=== PATIENT | female | born 1990 | race Caucasian/White ===

== ENCOUNTER 2016-12-04 23:25 | Emergency (ER) | payer BC, MEDICAID ==
[2016-12-05 00:01] VITALS: BP 126/89
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
== END 2016-12-05 01:35 | disposition home or self-care (01) ==
LOC: DL.ED 23:25
DX: S93.402A Sprain of unspecified ligament of left ankle, initial encounter (principal); F10.920 Alcohol use, unspecified with intoxication, uncomplicated; Z88.1 Allergy status to other antibiotic agents; W10.9XXA Fall (on) (from) unspecified stairs and steps, initial encounter
CPT/HCPCS: 36415; 73610; 99284; G0480

== ENCOUNTER 2017-01-10 15:17 | Emergency (ER) | payer MEDICAID | END 2017-01-10 15:40 | disposition left against medical advice (07) | LOC: DL.ED 15:17 | DX: Z53.21 Procedure and treatment not carried out due to patient leaving prior to being seen by health care provider (principal) ==

== ENCOUNTER 2019-12-23 11:15 | Emergency (ER) | payer OTHER, MEDICAID ==
[2019-12-23 11:30] VITALS: BP 112/65; PULSE 74
--- NOTE | 2019-12-23 11:49 | CR ---
PROCEDURE INFORMATION: Exam: XR Left Ankle Exam date and time: 12/23/2019 11:30 AM Age: 29 years old Clinical indication: Pain; Swelling or effusion of joint; Ankle; Left; Additional info: Ankle pain TECHNIQUE: Imaging protocol: XR Left ankle. Views: 1 or 2 views. COMPARISON: CR Ankle Min 3V Lt 12/05/2016 12:13 AM FINDINGS: Bones/joints: The ankle mortise is intact. No fractures are identified. Subtalar joints are in anatomic alignment. Bone mineral density is normal. Soft tissues: [id number] grade lateral soft tissue swelling is present. IMPRESSION: 1. Lateral soft tissue swelling. No acute osseous injury present.
--- NOTE | 2019-12-23 12:02 | EDM.PDOC ---
Scribed by Joyce Suarez 12/23/19 1202 for Genny Steele MD ED HPI GENERAL MEDICAL PROBLEM - General Chief Complaint: Lower Extremity Injury/Pain Stated Complaint: LEFT ANKLE INJURY [id number] Time Seen by Provider: 12/23/19 11:55 Source of Information: Reports: Patient, RN, RN Notes Reviewed History Limitations: Reports: No Limitations - History of Present Illness INITIAL COMMENTS - FREE TEXT/NARRATIVE: Patient presents to ED stating that she fell last night and has had pain and swelling to left ankle since. 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 Onset Date: 12/22/19 Duration: Constant Location: Reports: Lower Extremity, Left Quality: Reports: Ache Severity: Mild Improves with: Reports: None Worsens with: Reports: None Associated Symptoms: Reports: No Other Symptoms Left Ankle Pain Score (Numeric/FACES): 7 - Related Data Allergies Allergy/AdvReac Type Severity Reaction Status Date / Time amoxicillin Allergy Severe Swelling Verified 12/05/16 00:01 clavulanic acid Allergy Hives Verified 06/21/19 09:06 [From Augmentin] Home Meds: Home Meds . [No Known Home Meds] 04/22/16 [History] Past Medical History - Past Health History Medical/Surgical History: Denies Medical/Surgical History HEENT History: Reports: Other (See Below) Other HEENT History: dental pain Psychiatric History: Reports: Depression Endocrine/Metabolic History: Reports: Hypothyroidism Social & Family History - Family History Family Medical History: Noncontributory - Tobacco Use Smoking Status *Q: Light Tobacco Smoker Years of Tobacco use: 10 Packs/Tins Daily: 0.5 - Caffeine Use Caffeine Use: Reports: None - Recreational Drug Use Recreational Drug Use: No - Living Situation & Occupation Living situation: Reports: with Family Occupation: Employed Review of Systems - Review of Systems Review Of Systems: Comprehensive ROS is negative, except as noted in HPI. ED EXAM, GENERAL - Physical Exam Exam: See Below Exam Limited By: No Limitations General Appearance: Alert, WD/WN, No Apparent Distress Respiratory/Chest: No Respiratory Distress, Lungs Clear, Normal Breath Sounds, No Accessory Muscle Use Cardiovascular: Normal Peripheral Pulses, Regular Rate, Rhythm, No Murmur GI/Abdominal: Soft, Non-Tender Extremities: Other (left ankle swelling tender to palpation over ATFL. no tenderness to posterior malleoli. neurovascularly intact in the foot ) Neurological: Alert, Oriented, Normal Gait Psychiatric: Normal Affect, Normal Mood Skin Exam: Warm, Dry, Intact, No Rash Course - Vital Signs Last Recorded V/S: Last Vital Signs Temp 97.8 F 12/23/19 11:29 Pulse 74 12/23/19 11:29 Resp 16 12/23/19 11:29 BP 112/65 12/23/19 11:29 Pulse Ox 95 12/23/19 11:29 Departure - Departure Time of Disposition: 12:00 Disposition: Home, Self-Care 01 Condition: Good Clinical Impression: Left ankle sprain Qualifiers: Encounter type: initial encounter Involved ligament of ankle: anterior talofibular ligament Qualified Code(s): S93.492A - Sprain of other ligament of left ankle, initial encounter - Discharge Information *PRESCRIPTION DRUG MONITORING PROGRAM REVIEWED*: Not Applicable *COPY OF PRESCRIPTION DRUG MONITORING REPORT IN PATIENT [place]: Not Applicable Instructions: Ankle Sprain, [id number] Forms: ED Department Discharge Sepsis Event Note (ED) - Evaluation Sepsis Screening Result: No Definite Risk - Focused Exam Vital Signs: Vital Signs Temp Pulse Resp BP Pulse Ox 12/23/19 11:29 97.8 F 74 16 112/65 95 - Assessment/Plan Assessment:: 29 yo female with left ankle sprain Plan: vick wrap discussed symptomatic treatment including RICE therapy reviewed reasons to call/return the ER fu with PCP in 3-5 days I have read and agree with the documentation that has been completed regarding this visit. By signing this record, I attest that the documentation was completed in my physical presence and is an accurate record of the encounter.
== END 2019-12-23 12:07 | disposition home or self-care (01) ==
LOC: DL.ED 11:15
DX: S93.492A Sprain of other ligament of left ankle, initial encounter (principal); F17.210 Nicotine dependence, cigarettes, uncomplicated; Z88.0 Allergy status to penicillin; Z88.1 Allergy status to other antibiotic agents; W18.39XA Other fall on same level, initial encounter
CPT/HCPCS: 73600-LT; 99283

== ENCOUNTER 2020-02-01 20:09 | Emergency (ER) | payer OTHER, MEDICAID ==
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
[2020-02-01] MEDS ORDERED: Iopamidol 612 MG/ML 100 ML Bottle IVPUSH ONE (20:27)
[2020-02-01 21:00] LABS: ANION GAP 16.6 mEq/L (7-13); CHLORIDE,CL 101 mmol/L (98-107); SODIUM,NA 137 mmol/L (136-145)
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
[2020-02-01] MEDS ORDERED: Acetaminophen/HYDROcodone 325-10 MG Tab PO ONE (21:45)
[2020-02-01 21:54] VITALS: BP 126/77; PULSE 73
== END 2020-02-01 22:01 | disposition home or self-care (01) ==
LOC: DL.ED 20:09
DX: S80.11XA Contusion of right lower leg, initial encounter (principal); S30.0XXA Contusion of lower back and pelvis, initial encounter; S00.81XA Abrasion of other part of head, initial encounter; E03.9 Hypothyroidism, unspecified; Z88.1 Allergy status to other antibiotic agents; Z79.899 Other long term (current) drug therapy; X50.9XXA Other and unspecified overexertion or strenuous movements or postures, initial encounter
CPT/HCPCS: 36415; 70450; 70486; 71260; 72125; 73590; 74177; 80053; 85025; 99284; A9270; Q9967